=== PATIENT | male | born 1955 | race Two or more races ===

== ENCOUNTER 2024-05-06 14:22 | Emergency (ER) | payer MEDICARE, MEDICAID, SELFPAY ==
[2024-05-06 14:24] VITALS: BMI 23.6
[2024-05-06 15:10] VITALS: BP 165/74; PULSE 85; RESP 18; TEMP 37; O2SAT 98
--- NOTE | 2024-05-06 15:30 | PD.EDRME ---
Rapid Medical Screening Exam RME Arrival date/time: 68-year-old male presents emergency department complaining of dog bite to left bronson and right knee pain that occurred 3 days ago. Patient reports dog is up-to-date with vaccines. Chief Complaint: Extremity Problem,Nontraumatic Time Seen by Provider: 05/06/24 15:09 Vital signs: Vital Signs Temperature 98.6 F 05/06/24 15:10 Pulse Rate 85 05/06/24 15:10 Respiratory Rate 18 05/06/24 15:10 Blood Pressure 165/74 H 05/06/24 15:10 Pulse Oximetry (%) 98 05/06/24 15:10 Oxygen Delivery Method Room Air 05/06/24 15:10 Vital signs reviewed by provider: Yes
--- NOTE | 2024-05-06 15:31 | XR_ITS ---
Examination: Knee, right , 3 views Technique: Knee AP, lateral, oblique 3 views Date and time of exam: April 28, 2024 1605 hrs. Indications: Dog bite to the knee today with pain and swelling involving the knee Findings: Moderate osteopenia Mild to moderate tricompartment osteoarthritis No fracture No opaque foreign body Partial visualization femoral intramedullary senia Moderate knee effusion Impression: No fracture Moderate knee effusion No opaque foreign body
[2024-05-06] MEDS: DIPHTH,PERTUSS(ACELL),TET VAC 0.5 ML VIAL IMi (15:56)
[2024-05-06 16:44] LABS: Lactate (Lactic Acid) 0.7 mMol/L (0.4-2.0)
[2024-05-06 16:48] VITALS: BP 222/81; PULSE 66; RESP 19; TEMP 36.7; O2SAT 99
[2024-05-06 16:52] LABS: Basophils % (Auto) 1 % (0-2.5); Eosinophils # (Auto) 0.1 Thou/mm3 (0.0-0.5); Eosinophils % (Auto) 2 % (0-10); Hematocrit 37.6 % (41.0-53.0); Hemoglobin 12.2 g/dL (13.5-16.0); Immature Granulocytes % (Auto) 0 % (0-0); Immature Granulocytes Auto 0.02 Thou/mm3 (0.00-0.00); Lymphocytes # (Auto) 1.8 Thou/mm3 (1.0-4.8); Lymphocytes % (Auto) 30 % (10-50); Mean Corpuscular HGB Conc 32.4 g/dl (31.0-37.0); Mean Corpuscular Hemoglobin 30.4 pg (25.0-35.0); Mean Corpuscular Volume 94 fL (80-100); Monocytes # (Auto) 0.6 Thou/mm3 (0.0-0.8); Monocytes % (Auto) 10 % (0-12); Neutrophils # (Auto) 3.4 Thou/mm3 (1.8-7.7); Neutrophils % (Auto) 57 % (37-80); Nucleated Red Blood Cell % 0 /100 WBC (0); Platelet Count 211 Thou/mm3 (140-440); RDW Standard Deviation 46.5 fL (35.1-43.9); Red Blood Count 4.01 Miln/mm3 (4.50-5.90); White Blood Count 5.9 Thou/mm3 (3.8-10.6)
[2024-05-06 17:16] LABS: Alanine Aminotransferase 16 U/L (10-49); Albumin, Serum 4.5 gm/dL (3.4-4.8); Albumin/Globulin Ratio 1.5 (1.2-2.2); Alkaline Phosphatase 104 U/L (46-116); Anion Gap 5 (7-16); Aspartate Amino Transferase 18 U/L (0-34); BUN/Creatinine Ratio 26 Ratio (12-20); Bilirubin,Total 0.7 mg/dL (0.3-1.2); Blood Urea Nitrogen 21 mg/dL (9-23); Calcium 9.5 mg/dL (8.3-10.6); Calcium (Corrected) 9.5 mg/dL (8.5-10.1); Carbon Dioxide 30.4 mMol/L (20.0-31.0); Chloride 106 mMol/L (98-107); Creatinine (Component) 0.8 mg/dL (0.6-1.3); Estimated Creatinine Clearance 84.3 mL/min (>60); Glucose 102 mg/dL (74-106); Osmolality,Calculated 284 (275-295); Potassium 4.5 mMol/L (3.4-5.1); Procalcitonin 0.05 ng/ml (0.0-0.49); Sodium 141 mMol/L (136-145); Total Protein 7.5 gm/dL (5.7-8.2); eGFR > 60 See Note
[2024-05-06 18:15] VITALS: BP 179/72; PULSE 69; RESP 18; TEMP 36.8; O2SAT 98
--- NOTE | 2024-05-06 18:20 | EDNOTE_ITS ---
ED Extremity Problem RME/HPI General Chief complaint: Extremity Problem,Nontraumatic Stated complaint: DOG BITE LEFT BRONSON, RIGHT KNEE SWELLING x 7 DAYS Time Seen by Provider: 05/06/24 15:09 Arrival date/time: 05/06/24 14:22 RME / HPI RME / HPI Narrative: 68-year-old male presents emergency department complaining of dog bite to left bronson and right knee pain that occurred 3 days ago. Patient reports dog is up-to-date with vaccines. ------ Dr. Pagan?s Main ED Evaluation: 68yo male presents to the ED for a chief complaint of LLE pain s/p dog bite 3 days ago. Patient does not know whose dog bit him. He complains of left bronson redness and pain. He also complains of right knee swelling that started 3 days ago while at work. He denies any fever, chills or any other associated symptoms. Related Data Previous Rx's ?Medication ?Instructions ?Recorded tramadol 50 mg tablet 50 mg PO BID PRN pain #7 tabs 01/26/22 acetaminophen 500 mg tablet 500 mg PO QID PRN pain #30 tabs 07/03/23 (Tylenol Extra Strength) amoxicillin 875 mg-potassium 1 tab PO BID #14 tabs 07/03/23 clavulanate 125 mg tablet acetaminophen 325 mg tablet 650 mg (2 x 325 mg) PO Q6HR PRN 05/06/24 for pain 7 days #60 tabs amoxicillin 875 mg-potassium 1 tab PO BID 10 days #20 tabs 05/06/24 clavulanate 125 mg tablet Allergies Allergy/AdvReac Type Severity Reaction Status Date / Time ibuprofen AdvReac Severe SWELLING Verified 05/06/24 14:26 UNDER EYES Review of Systems Review of Systems Systems Reviewed: All systems reviewed, normal except as documented Narrative Review of Systems: Gen: No fever, no chills, no weight loss EYES: No discharge, no visual changes, no pain HEENT: No ear pain, no congestion, no sore throat PULM: No shortness of breath, no cough, no congestion CV: No chest pain, no dyspnea on exertion, no palpitations GI: No nausea, no vomiting, no diarrhea, no pain, no constipation : No frequency, no urgency, no dysuria Musc/skel: + LLE pain, + right knee swelling, no back pain Skin: No rash. Warm and dry. Psyc: No hallucinations, no depression Heme/Lymph: No easy bleeding or bruising tendencies Neuro: No weakness, no headache Past Medical History Past Medical History NEUROLOGIC: Negative Neurological Disorders CARDIAC: Positive Hypertension; Negative Cardiac Disorders or Congestive Heart Failure RESPIRATORY: Positive Asthma and Bronchitis; Negative Chronic Obstructive Pulmonary Disease (COPD) GASTROINTESTINAL: Negative Gastrointestinal Disorders GENITOURINARY: Negative Genitourinary Disorders or Renal Disease MUSCULOSKELETAL: Negative Musculoskeletal Disorders ENDOCRINE: Positive Diabetes Mellitus Type 2; Negative Endocrine Disorders or Diabetes Mellitus Type 1 HEMATOLOGIC: Negative Blood Disorders OTHER HISTORY: Negative Autoimmune Disease Family History FAMILY HISTORY: Negative Family Cardiac Disorders Social History SMOKING STATUS: Heavy (> 1 pack/day) ED Exam Narrative Physical exam: GENERAL APPEARANCE: alert and oriented x 4, well-developed, well-nourished, no acute distress VITALS: All vitals were reviewed and the pulse ox is 98% on room air, which is normal according to my interpretation. HEENT: Normocephalic, atraumatic; pupils equal, round, reactive to light; EOMI; mucous membranes pink, moist; oropharynx clear NECK: Supple LUNGS: CTABL; no wheezes, no rales, no rhonchi HEART: Regular rate, regular rhythm; normal S1, S2; no murmurs ABDOMEN: non distended; normal BS; soft, no tenderness, no guarding, no rebound; no masses, no organomegaly, no hernia BACK: no CVA tenderness EXTREMITIES: multiple eschar covered wounds with surrounding erythema to the LLE, hot and tender on palpation, but no active discharge, no pain out of proportion to the exam; no edema NEUROLOGIC: awake; alert and oriented x4; cranial nerves II-XII grossly intact; no focal sensory or motor deficits PSYCHIATRIC: appropriate mood and affect SKIN: warm, dry, normal color; no rashes Course Quality Measures none Orders Category Date Time Status Wound Care [Wound Care] NOW Care 05/06/24 15:31 Completed XR knee RT 3V Stat Exams 05/06/24 15:31 Completed Blood Culture (Lab) Stat Lab 05/06/24 16:30 Results CBC Stat Lab 05/06/24 16:30 Completed CMP [Comprehensive Metabolic Panel] Stat Lab 05/06/24 16:30 Completed Lactate (Lactic Acid) Stat Lab 05/06/24 16:30 Completed Procalcitonin Stat Lab 05/06/24 16:30 Completed Tet,Diphth,Pertuss(Acell)-Tdap [Boostrix Vacc] Med 05/06/24 15:31 Discontinued 0.5 ml IMI .ONCE ONE Vital Signs Vital signs: Vital Signs Temperature 98.6 F 05/06/24 15:10 Pulse Rate 85 05/06/24 15:10 Respiratory Rate 18 05/06/24 15:10 Blood Pressure 165/74 H 05/06/24 15:10 Pulse Oximetry (%) 98 05/06/24 15:10 Oxygen Delivery Method Room Air 05/06/24 15:10 Extremity Problem MDM Narrative MDM Narrative:: Scribe Attestation: 05/06/24 - Earnestine Bermudez am scribing for and in the presence of Dr. Pagan. Patient data External records reviewed:: [facility] previous records (Per chart review, patient was seen here on 07/03/23 for exudative tonsillitis.) Clinical information provided by:: patient Social determinants that could affect healthcare access:: none Patient has the following chronic illnesses:: asthma How is presenting disease/condition affected by chronic disease/condition?: uneffected by Evaluation data The following diagnostics were reviewed and interpreted by me:: lab results and radiology exam(s) Lab and/or radiology exams considered but not ordered:: none Interpretation Summary: CBC is normal, CMP is normal, Lactic Acid is normal, Procalcitonin is normal, according to my interpretation. --- [facility] Report Signed Patient: CECILIA TAYLOR Record#: [id number] Birthdate: 1955 Age/Sex: 68 / M Location: [facility] ([place] Attending Dr: Ordering Physician: Dafne TEIXEIRA)Nathan Date of Service: 05/06/24 Procedure(s): XR knee RT 3V Accession Number(s): [id number] cc: Del Chakraborty MD; Vinh Nathan MD; Dafen TEIXEIRA)Nathan~ Examination: Knee, right , 3 views Technique: Knee AP, lateral, oblique 3 views Date and time of exam: April 28, 2024 1605 hrs. Indications: Dog bite to the knee today with pain and swelling involving the knee Findings: Moderate osteopenia Mild to moderate tricompartment osteoarthritis No fracture No opaque foreign body Partial visualization femoral intramedullary senia Moderate knee effusion Impression: No fracture Moderate knee effusion No opaque foreign body Dictated By: Del Chakraborty MD Signed By: <Electronically signed by Del Chakraborty MD in OV> 05/06/24 7523 Medications / Prescriptions Medications or Prescriptions considered but not ordered:: none Medication administrations:: Medication Administration History Discontinued Medications Diphtheria/Tetanus/Acell Pertussis (Diphth,Pertuss(Acell),Tet Vac 0.5 Ml Vial) 0.5 ml IMi .ONCE ONE Stop: 05/06/24 15:32 Last Admin: 05/06/24 15:56 Dose: 0.5 ml Documented By: see above Consultations Consultation(s) initiated? (list below): No Diagnosis Extremity Problem Differential Diagnosis: cellulitis, lower extremity edema and other (dog bite) Most likely diagnosis given after review of the tests above:: see below Admission Indicated Admission indicated?: not indicated Admission Request Was there a request for admission?: No Disposition Plan Disposition Plan: Discharge Discharge Attestation Discharge Attestation: The patient and all family members were given an opportunity to ask questions and understood the discharge instructions. Discharge instructions specifically effects, indications for sooner follow up or return to the emergency department, and the expected course of current diagnosis. Patient condition: Stable Discharge Plan Plan Patient Disposition: HOME (Self Care) Disposition Comment: Stable for discharge Patient condition on transfer: Stable Prescriptions/Referrals Prescriptions/Med Rec: New amoxicillin-pot clavulanate 875-125 mg tablet 1 tab PO BID 10 Days Qty: 20 0RF acetaminophen 325 mg tablet 650 mg PO Q6HR PRN (Reason: for pain) 7 Days Qty: 60 0RF No Action amoxicillin-pot clavulanate 875-125 mg tablet 1 tab PO BID Qty: 14 0RF acetaminophen [Tylenol Extra Strength] 500 mg tablet 500 mg PO QID PRN (Reason: pain) Qty: 30 0RF tramadol 50 mg tablet 50 mg PO BID PRN (Reason: pain) Qty: 7 0RF Referrals: Vinh Nathan MD [Primary Care Provider] - In 1 week Problem List Clinical Impression: Cellulitis, Dog bite Patient/Caregiver Discharge Instructions Discharge Activity: activity as tolerated Education Materials: Discharge Instructions for Cellulitis, ED Cellulitis, ED Dog Bite Additional Instructions: I have called in a prescription for Augmentin for you at your pharmacy. You are getting need to take that antibiotic twice per day for 10 days even if you are getting better before that. If you notice yourself getting worse or not improving within 48 hours please return to the emergency department. You can take the acetaminophen for pain. Take 2 tabs up to 4 times a day. As always please return to the ER if you notice any worsening or any further medical problems Otherwise you should follow-up with your primary care doctor within the next several days Print Language: Tamazight Stand Alone Forms: Brianna Award Info., Patient Portal Info Letter
== END 2024-05-06 18:56 | disposition home or self-care (01) ==
PROVIDERS: Emergency Provider Emergency Medicine; PCP Family Medicine
DX: S81.852A Open bite, left lower leg, initial encounter (principal); L03.115 Cellulitis of right lower limb; W54.0XXA Bitten by dog, initial encounter; M25.461 Effusion, right knee; F17.210 Nicotine dependence, cigarettes, uncomplicated; Z23 Encounter for immunization; J45.909 Unspecified asthma, uncomplicated
CPT/HCPCS: 36415; 73562; 80053; 83605; 84145; 85025; 87040; 90471; 90715; 99283

== ENCOUNTER 2025-04-01 11:59 | Emergency (ER) | payer MEDICARE, MEDICAID, SELFPAY ==
[2025-04-01 12:33] VITALS: BP 217/83; BP 221/100; PULSE 71; RESP 18; TEMP 36.7; O2SAT 96; BMI 22.8
--- NOTE | 2025-04-01 12:43 | XR_ITS ---
Examination: Hand, left 2 views Technique: AP lateral left hand 2 views Date and time: April 01, 2025, 1255 hours INDICATIONS: Dog bite to the hand today, pain. FINDINGS: Moderate osteopenia. No fracture. No opaque foreign body IMPRESSION: No opaque foreign body
--- NOTE | 2025-04-01 12:43 | XR_ITS ---
Examination: Forearm, right, 2 views. Technique: Forearm, AP, lateral 2 views Date and time of exam: April 01, 2025, 12:53 p.m. INDICATIONS: Dog bite to the forearm today, pain FINDINGS: Soft tissue defects adjacent to the midshaft of the radius No fracture No foreign body IMPRESSION: No fracture No foreign body
--- NOTE | 2025-04-01 12:43 | XR_ITS ---
EXAMINATION: Left wrist 2 views TECHNIQUE: AP lateral left wrist 2 views Date and time: April 01, 2025, 1256 hours INDICATIONS: Dog bite today to the wrist wrist pain FINDINGS: Moderate osteopenia. No fracture or dislocation. No opaque foreign body IMPRESSION: No opaque foreign body
[2025-04-01] MEDS: ONDANSETRON ODT 4 MG TABRAP PO (13:06)
[2025-04-01] MEDS: HYDROcodone/APAP 5/325 TABLET 1 TAB PO ×2 (13:07→15:20)
[2025-04-01] MEDS: RABIES IMMUNE GLOBULIN 150 IU/ML VIAL 10ML 1350 IU IM (13:08)
[2025-04-01] MEDS: LIDOCAINE HCL 1% 20 ML VIAL INFL (13:09)
--- NOTE | 2025-04-01 14:54 | EDNOTE_ITS ---
ED Animal Bite RME/HPI General Chief Complaint: Animal Bite Stated Complaint: ANIMAL BITE Time Seen by Provider: 04/01/25 12:30 Arrival date/time: 04/01/25 11:59 This is a 69-year-old male that comes into the emergency room with complaints of dog bite to his right forearm. wound is approximately 12 cm in length. Patient has multiple small abrasions on old right arm and multiple puncture wounds to his left hand patient has a V shape puncture wound that is deeper than the other puncture wounds on his left hand. Wound is approximately 1 cm each side of the V. Related Data Previous Rx's ?Medication ?Instructions ?Recorded tramadol 50 mg tablet 50 mg PO BID PRN pain #7 tab s 01/26/22 acetaminophen 500 mg tablet 500 mg PO QID PRN pain #30 tabs 07/03/23 (Tylenol Extra Strength) amoxicillin 875 mg-potassium 1 tab PO BID #14 tabs clavulanate 125 mg tablet doxycycline hyclate 100 mg tablet 100 mg PO BID #14 ta bs 04/01/25 Allergies Allergy/AdvReac Type Severity Reaction Status Date / Time ibuprofen AdvReac Severe SWELLING Verified 04/01/25 12:05 UNDER EYES Review of Systems Review of Systems Systems Reviewed: All systems reviewed, normal except as documented Past Medical History Past Medical History NEUROLOGIC: Negative Neurological Disorders CARDIAC: Positive Hypertension; Negative Cardiac Disorders or Congestive Heart Failure RESPIRATORY: Positive Asthma and Bronchitis; Negative Chronic Obstructive Pulmonary Disease (COPD) GASTROINTESTINAL: Negative Gastrointestinal Disorders GENITOURINARY: Negative Genitourinary Disorders or Renal Disease MUSCULOSKELETAL: Negative Musculoskeletal Disorders ENDOCRINE: Positive Diabetes Mellitus Type 2; Negative Endocrine Disorders or Diabetes Mellitus Type 1 HEMATOLOGIC: Negative Blood Disorders OTHER HISTORY: Negative Autoimmune Disease Family History FAMILY HISTORY: Negative Family Cardiac Disorders Social History SMOKING STATUS: Heavy (> 1 pack/day) ED Exam Narrative Physical exam: VITAL SIGNS: Reviewed. GENERAL APPEARANCE: Alert and interactive, follows commands, no acute distress HEAD AND FACE: Non-traumatic. ENT: PERRL, conjuctiva pink and clear, eyelid no trauma, Mucous membrane moist. NECK: Supple, nontender, no nuchal rigidity. CHEST: No tenderness, no crepitus, no paradoxical movement, no retractions. LUNGS: breathing even and unlabored HEART: Regular rate, cap refill less than 2 seconds ABDOMEN: Soft, nondistended, no guarding, nontender, no rebound, no masses, NEUROLOGICAL: Gross motor function intact sensory function intact, Appropriate for age. MUSCULOSKELETAL: low back nontender, full range of motion. no midline tenderness, no meningismus, no step offs EXTREMITIES: No redness no swelling no skin breakdown on bilateral foot and leg. Distal neurovascular status intact bilateral foot, good distal pulses to wound. Patient has full range of motion to right hand sensation intact. SKIN: Color pink, dry, large approximately 12 cm laceration to dorsal right forearm. Laceration to the right forearm has multiple areas of puncture wounds skin tears, avulsions of skin. Areas where there is skin missing. Patient is left arm has multiple lacerations that are for the most part superficial multiple areas of abrasions skin tears and skin areas worse there are skin missing/skin avulsion. Patient has 1 deeper wound to the left palm by the thumb it is in a V shape approximately half a centimeter each side of the. Course Orders Category Date Time Status Cleanse Wound NEEDED Care 04/01/25 12:49 Active XR forearm RT 2V Stat Exams 04/01/25 12:43 Completed XR hand LT 2V Stat Exams 04/01/25 12:43 Completed XR wrist LT 2V Stat Exams 04/01/25 12:43 Completed HYDROcodone*/APAP 5/325 [[place] 5/325] Med 04/01/25 12:45 Discontinued 1 tab PO X1 ONE HYDROcodone*/APAP 5/325 [[place] 5/325] Med 04/01/25 14:57 Discontinued 1 tab PO X1 ONE Lidocaine 1% 20 ml [Xylocaine 1% 20 ML] Med 04/01/25 12:49 Discontinued 20 ml INFL X1 ONE Lidocaine 1% 20 ml [Xylocaine 1% 20 ML] Med 04/01/25 14:23 Discontinued 20 ml INFL X1 ONE Ondansetron Odt [Zofran Odt] Med 04/01/25 12:45 Discontinued 4 mg PO X1 ONE Rabies Immune Globulin/Thimer [Kedrab Inj] Med 04/01/25 12:45 Discontinued 1,350 iu IM X1 ONE TET,DIP/PERT AC (Adult)-Tdap [Boostrix Adult (Tdap) Med 04/01/25 12:45 Discontinued Vacc] 0.5 ml IMI .ONCE ONE cefTRIAXone [Rocephin] 1,000 mg Med 04/01/25 14:57 Discontinued Lidocaine 1% Pf 5 ml [Xylocaine 1% Pf 5 ml] 2.1 ml IM X1 Vital Signs Vital signs: Vital Signs Temperature 98.1 F 04/01/25 12:33 Pulse Rate 71 04/01/25 12:33 Respiratory Rate 18 04/01/25 12:33 Blood Pressure 221/100 H 04/01/25 12:33 Pulse Oximetry (%) 96 04/01/25 12:33 Oxygen Delivery Method Room Air 04/01/25 12:33 PROCEDURES: Laceration Laceration 1: Site: hand Side (If applicable): left Size (cm): 0.5 Description: irregular Depth: simple, single layer Local Anesthetic: lidocaine 1% Amount of anesthesia used (mL): 2 Pre-repair: wound explored and irrigated extensively Skin layer closed with: nylon Suture size (cm): 4-0 Number of sutures: 2 Technique: simple, interrupted Laceration 2: Site: other (Right forearm) Side (If applicable): right Size (cm): 12 Description: irregular and other (Irregularly-shaped multiple areas where there is missing skin, multiple puncture wounds around the laceration, jagged edges) Depth: simple, single layer Local Anesthetic: lidocaine 1% Amount of anesthesia used (mL): 10 Pre-repair: wound explored and irrigated extensively Skin layer closed with: nylon Suture size (cm): 3-0 Number of sutures: 8 Technique: simple, interrupted Animal Bite MDM Narrative MDM Narrative:: Patient has multiple wounds to his right forearm with a large laceration to the right forearm and multiple wounds to his left hand with multiple puncture wounds and a deeper laceration to the left palm. Sensation is intact. There is full range of motion. There is no exposed tendons. No foreign bodies. Lidocaine 1% was used for anesthesia. The wound was irrigated extensively with normal saline. 8 sutures were placed to right forearm laceration. I kept a good amount of space in between sutures because I did explain to patient that because of the mechanism it is likely that it can get infected But skin needed to be sutured, I used 3-0 nylon to make the 8 sutures. I also used 4-0 nylon for the 2 sutures on the left hand that was V-shaped. Triple antibiotic ointment placed over wound. A dressing was placed. There were no complications. Patient was educated to keep area clean and dry for 24 hours. Then clean daily with soap and water. Patient was educated to return for any signs of infection including swelling, pain, redness, pus, or fever and instructed to make an appointment with primary care provider in 48 hours. Patient was educated to follow-up with primary or return to the emergency room for suture removal in the next 7 to 10 days. Patient verbalized understanding. Patient did not want to wait for x-ray results to come back. Patient signed out AMA but did give him paperwork for discharge. Patient instructed to come back on day 3 7 and 14. Patient verbalized understanding. forearm x ray: FINDINGS: Soft tissue defects adjacent to the midshaft of the radius No fracture No foreign body IMPRESSION: No fracture No foreign body hand x ray: FINDINGS: Moderate osteopenia. No fracture. No opaque foreign body IMPRESSION: No opaque foreign body wrist x ray: FINDINGS: Moderate osteopenia. No fracture or dislocation. No opaque foreign body IMPRESSION: No opaque foreign body Medications / Prescriptions Medication administrations:: Medication Administration History Discontinued Medications Hydrocodone Bitart/Acetaminophen (Hydrocodone/Apap 5/325 Tablet) 1 tab PO X1 ONE Stop: 04/01/25 12:46 Last Admin: 04/01/25 13:07 Dose: 1 tab Documented By: DUSTIN Hydrocodone Bitart/Acetaminophen (Hydrocodone/Apap 5/325 Tablet) 1 tab PO X1 ONE Stop: 04/01/25 14:58 Last Admin: 04/01/25 15:20 Dose: 1 tab Documented By: DUSTIN Ceftriaxone Sodium 1,000 mg/ (Lidocaine HCl 2.1 ml) 0 mg IM X1 ONE Stop: 04/01/25 14:58 Last Admin: 04/01/25 15:21 Dose: 1,000 mg Documented By: DUSTIN Diphtheria/Tetanus/Acell Pertussis (Diphth,Pertuss(Acell),Tet Vac 0.5 Ml Syr- Adult) 0.5 ml IMi .ONCE ONE Stop: 04/01/25 12:46 Last Admin: 04/01/25 13:09 Dose: Not Given Documented By: DUSTIN Non-Admin Reason: Patient Refused Comments: PT STATES I HAD THE TETANUS VACCINE A YEAR AGO Lidocaine HCl (Lidocaine Hcl 1% 20 Ml Vial) 20 ml INFL X1 ONE Stop: 04/01/25 12:50 Last Admin: 04/01/25 13:09 Dose: 20 ml Documented By: DUSTIN Comments: ADMINISTERED BY PROVIDER Lidocaine HCl (Lidocaine Hcl 1% 20 Ml Vial) 20 ml INFL X1 ONE Stop: 04/01/25 14:24 Ondansetron HCl (Ondansetron Odt 4 Mg Tabrap) 4 mg PO X1 ONE; Protocol Stop: 04/01/25 12:46 Last Admin: 04/01/25 13:06 Dose: 4 mg Documented By: DUSTIN Rabies Immune Globulin (Rabies Immune Globulin 150 Iu/Ml Vial 10ml) 1,350 iu IM X1 ONE Stop: 04/01/25 12:46 Last Admin: 04/01/25 13:08 Dose: 1,350 iu Documented By: DUSTIN Comments: ADMINISTERED HANDED TO PROVIDER, MISPLACED BY PROVIDER, MEDICATION NOT ADMINISTERED, PHARMACY AWARE. NEW VIAL SENT FROM PHARMACY, NEW VIAL ADMINISTERED BY PROVIDER Discharge Plan Plan Patient Disposition: HOME (Self Care) Patient condition on transfer: Stable Prescriptions/Referrals Prescriptions/Med Rec: New doxycycline hyclate 100 mg tablet 100 mg PO BID Qty: 14 0RF No Action amoxicillin-pot clavulanate 875-125 mg tablet 1 tab PO BID Qty: 14 0RF acetaminophen [Tylenol Extra Strength] 500 mg tablet 500 mg PO QID PRN (Reason: pain) Qty: 30 0RF tramadol 50 mg tablet 50 mg PO BID PRN (Reason: pain) Qty: 7 0RF Referrals: Luigi Wood MD [Primary Care Provider, Family Practice] - In 1 week Problem List Clinical Impression: Animal bite, Laceration of arm, Puncture wound, Avulsion of skin of forearm, Avulsion of skin of hand Patient/Caregiver Discharge Instructions Discharge Activity: activity as tolerated Education Materials: ED Laceration: All Closures Additional Instructions: Follow up with primary provider in 1-2 days. Come back to ED if symptoms change or worsen. Come back on april 04, marchapril 08, 2025, and then d [facility] 2024 Print Language: Malay Stand Alone Forms: Brianna Award Info., Patient Portal Info Letter JOSE/NGUYEN Supervising Physician NANCIE Supervising Physician: luis fernando
[2025-04-01 15:19] VITALS: BP 165/87; PULSE 65; RESP 18; TEMP 36.8; O2SAT 97
== END 2025-04-01 18:45 | disposition home or self-care (01) ==
PROVIDERS: Emergency Provider Emergency Medicine; PCP Family Medicine
DX: S61.452A Open bite of left hand, initial encounter (principal); S51.851A Open bite of right forearm, initial encounter; W54.0XXA Bitten by dog, initial encounter
CPT/HCPCS: 12002; 90715; 73090; 73100; 73120; 90377; 96372; 99283; J0696; J3490; Q0162; A9270